=== PATIENT | male | born 1990 | race Caucasian/White ===

== ENCOUNTER → 2021-02-22 | Outpatient (CLI) | payer SELFPAY ==
[~2021-02-22] MED LIST: DEXT15TA PO; DOCU-109 PO; HYDR-2759 PO; METH-562 PO
[2021-02-22 14:26] LABS: BASO % 1 % (0-3); EOS # 0.1 x10^3/uL (0.0-0.7); EOS % 2 % (0-3); HEMATOCRIT 45.2 % (39.0-53.0); HEMOGLOBIN 16.2 g/dL (13.0-17.5); LYMPH # 2.1 x10^3/uL (1.0-4.8); LYMPH % 41 % (24-48); MEAN CORPUSCULAR HEMOGLOBIN 32 pg (25-35); MEAN CORPUSCULAR HGB CONC 36 g/dL (31-37); MEAN CORPUSCULAR VOLUME 90 fL (79-100); MONO # 0.6 x10^3/uL (0.0-1.1); MONO % 12 % (0-9); NEUT # 2.2 x10^3/uL (1.8-7.7); NEUT % 44 % (31-73); PLATELET COUNT 220 x10^3/uL (140-400); RED BLOOD COUNT 5.01 x10^6/uL (4.30-5.70); RED CELL DISTRIBUTION WIDTH 13.2 % (11.5-14.5)
[2021-02-22 14:53] LABS: ALBUMIN 4.2 g/dL (3.4-5.0); ALBUMIN/GLOBULIN RATIO 1.2 (1.0-1.7); CREATININE 1.2 mg/dL (0.7-1.3); GFR 72.1; POTASSIUM 4.3 mmol/L (3.5-5.1); TOTAL BILIRUBIN 0.5 mg/dL (0.2-1.0); TOTAL PROTEIN 7.6 g/dL (6.4-8.2)
== END ==
LOC: EDUNIT# 13:00 → SURGPAT 13:11
PROVIDERS: ATTEND Neurological Surgery
DX: Z01.818 Encounter for other preprocedural examination (principal); M51.17 Intervertebral disc disorders with radiculopathy, lumbosacral region; Z20.822 Contact with and (suspected) exposure to COVID-19
CPT/HCPCS: 80053; 85025; 87641; U0003; U0005

== ENCOUNTER 2021-02-24 10:05 | Day surgery (SDC) | payer SELFPAY ==
[2021-02-22 13:57] VITALS: BP 115/81
--- NOTE | 2021-02-22 20:54 | PREOP HP ---
DATE OF SERVICE: 02/24/2021 HISTORY OF PRESENT ILLNESS: The patient is a pleasant 30-year-old who is having difficulty with low back pain and right leg pain. The problem has been present for many years. He says he felt as though he has injured his back lifting weights He notes pain in the lower back, which radiates to the right lateral and posterior thigh and leg. He says he notices that when he becomes active, the leg feels tight. He says there is usually a discomfort, but it can be severe with activities. Activities tends to make his pain worse in his back and leg. Sitting and lying down and an activity helps. He received chiropractic treatment, physical therapy, as well as lumbar epidural steroid injections. His job requires primarily office type work. CURRENT MEDICATIONS: Adderall. PAST MEDICAL HISTORY: Denies any previous medical problems. PAST SURGICAL HISTORY: Bonita teeth and gynecomastia surgery in 2012. FAMILY HISTORY: Cancer. SOCIAL HISTORY: Employed, single. Nonsmoker. Drinks alcohol 1-2 times per month. ALLERGIES: No known drug allergies. REVIEW OF SYSTEMS: A 12-point review of systems was performed and is noncontributory except that mentioned above. PHYSICAL EXAMINATION: GENERAL: Alert, pleasant, in no acute distress. HEAD: Normocephalic, atraumatic. SKIN: Warm and dry. MUSCULOSKELETAL: Lumbar paraspinal muscle bulk is normal, restricted range of motion of the lumbar spine, [id number] tenderness of the lower lumbar spine with palpation, normal range of motion of the lower extremities bilaterally. EXTREMITIES: No clubbing, cyanosis or edema. NEUROLOGIC: Alert and oriented x3. Normal recent and remote memory, strength is 5/5 in the lower extremities, sensory was intact to light touch in the lower extremities, reflexes were present and symmetric in lower extremities bilaterally except for an absent right ankle jerk, positive straight leg raising on the right, negative straight leg raising on the left. Normal gait. IMAGING: I reviewed a lumbar MRI scan from 09/06/2020. On that study, the principal abnormality is at L5-S1 where there is a right focal disk protrusion. It has decreased in size from a study done a year earlier; however, there is extension of the disk into the foramen causing moderate right foraminal stenosis. There were also problems with disk bulging, which is broadbased at L4-L5 as well as L3-L4. ASSESSMENT AND PLAN: The patient has a focal disk herniation on the right side at L5-S1, which has failed to improve with considerable amount of conservative measures including epidural steroid injections and physical therapy. The problem interferes with all of his activities. My recommendation is that he consider lumbar microsurgery/microdiskectomy to remove this. I did speak with him about the surgery as well as the risks involved. I spoke about the technique of the operation and the expected postoperative course. He understands and would like to go ahead. GREER DR: Shakila TID: [id number] MTDTemo
[~2021-02-24] VITALS: Ht 182.9 cm; Wt 108.0 kg
[~2021-02-24 10:05] MED LIST changes: +BUPIVACAINE-EPI 0.5%-1:200000 MPF 30 ML VIAL. ONE; -DOCU-109 PO; +GELATIN SPONGE SIZE 100. ONE; -HYDR-2759 PO; +HYDROmorphone 2 MG/ML VIAL IVP PRN; +IV RINGERS,LACTATED 1000ML 1,000 ML IV SCH; +KETOROLAC 60 MG/2 ML VIAL. ONE; -METH-562 PO; +MORPHINE SULFATE 2 MG/ML VIAL. IVP PRN; +PROCHLORPERAZINE 10 MG/2 ML VIAL. IVP PRN; +THROMBIN TOPICAL 20,000 UNIT SPRAY.SYRN KIT TP ONE; +fentaNYL PF VIAL 100 MCG/2 ML VIAL IVP PRN
[2021-02-24] MEDS ORDERED: MIDAZOLAM HCL/PF 2 MG/2 ML VIAL. ONE (10:35)
[2021-02-24] MEDS ORDERED: REMIFENTANIL 1 MG VIAL. IV ONE ×2 (10:35→12:34)
[2021-02-24] MEDS ORDERED: ROCURONIUM 50 MG/5 ML VIAL. ONE (10:35)
[2021-02-24] MEDS ORDERED: LIDOCAINE 2% PF 5 ML VIAL. ONE (10:35)
[2021-02-24] MEDS ORDERED: 0.9 % SODIUM CHLORIDE 20 ML VIAL. IJ ONE (10:35)
[2021-02-24] MEDS ORDERED: PROPOFOL 10 MG/ML (20ML) VIAL. IV ONE (10:35)
[2021-02-24] MEDS ORDERED: fentaNYL PF VIAL 250 MCG/5 ML VIAL ONE (10:36)
[2021-02-24] MEDS ORDERED: PROPOFOL 50 ML IV ONE ×2 (10:40→12:25)
[2021-02-24] MEDS ORDERED: ONDANSETRON PF 4 MG/2 ML VIAL. ONE (12:06)
[2021-02-24] MEDS ORDERED: DEXAMETHASONE SOD PHOS 4 MG/ML VIAL ONE (12:06)
[2021-02-24] MEDS ORDERED: SEVOFLURANE > 120 MINUTES. IH ONE (12:06)
[2021-02-24] MEDS ORDERED: NEOSTIGMINE METHYLSULFATE 5 MG/5 ML SYRINGE. ONE (12:32)
[2021-02-24] MEDS ORDERED: GLYCOPYRROLATE 1 MG/5 ML VIAL. ONE (12:32)
[2021-02-24] MEDS ORDERED: HYDR-2759 PO (13:32)
[2021-02-24] MEDS ORDERED: DOCU-109 PO (13:32)
[2021-02-24] MEDS ORDERED: METH-562 PO (13:32)
--- NOTE | 2021-02-24 13:33 | DISCH ---
DISCHARGE INSTRUCTIONS Condition on Discharge Condition on Discharge: Stable Activity After Discharge Activity Instructions for Disc: Activity as tolerated, Avoid exertion Other activity instructions: no driving for a week Bathing Instructions: Shower-keep dressing dry Lifting Instructions after Dis: No heavy lifting, No pulling or pushing, Do not lift >10 pounds Diet after Discharge Additional Diet Restrictions: resume home diet Wound Incision Care Wound/Incision Care: Ice to area for comfort Other wound/incision instructi: may remove dressing in 48 hours if dry, no soaking Contacting the [facility] after DC Call your doctor for: Concerns you may have Follow-Up Follow up with: Dr. Carlton's nurse in 2 weeks [phone] EMILY CARLTON MD Feb 24, 2021 13:33
[2021-02-24] MEDS ORDERED: PROCHLORPERAZINE 10 MG/2 ML VIAL. ONE (14:43)
[2021-02-24] MEDS ORDERED: fentaNYL PF VIAL 100 MCG/2 ML VIAL ONE (14:43)
[2021-02-24] MEDS: fentaNYL PF VIAL 100 MCG/2 ML VIAL IVP PRN ×2 (14:46→14:57)
[2021-02-24] MEDS ORDERED: HYDROcodone/APAP 5/325MG 1 TAB TABLET PO ONE ×2 (15:00)
[2021-02-24 15:22] VITALS: BP 156/44
--- NOTE | 2021-02-24 16:56 | OP ---
DATE OF SURGERY: 02/24/2021 PREOPERATIVE DIAGNOSIS: Herniated lumbar disc, L5-S1, right with right lumbar radiculopathy. POSTOPERATIVE DIAGNOSIS: Herniated lumbar disc, L5-S1, right with right lumbar radiculopathy. OPERATIONS PERFORMED: Hemilaminotomy and microdiscectomy L5-S1, right. The operation was done with fluoroscopy, microscopic dissection. SPECIMEN:disc and decompression. SURGEON: Martin Santiago M.D. COLD WORKING SUPERVISOR: NAS Rojas, assisted with the surgery. She assisted with the exposure as well as the discectomy and microdecompression of the nerve root. OPERATIVE INDICATIONS: The patient is a pleasant 30-year-old male who had a long history of problems with L5-S1 disc on the right and lumbar radiculopathy. He has received a tremendous amount of conservative measures, the problem persisted and he presented to me wishing to have surgery. I did discuss with him the risks, the technique of the operation and the fact that this may or may not improve over the long-term based on the length of time he has had difficulties with nerve root irritation. He understood the surgery as well as the risks. DESCRIPTION OF PROCEDURE: Following general endotracheal anesthesia, the patient was positioned prone on the Dixon table. Lumbar region was prepped and draped in standard fashion. ALLI hose and AV impulse boots were applied for DVT prophylaxis. The microscope was draped, fluoroscopy was draped and brought to field and monitoring was established. Ancef 2 grams given less than 1 hour prior to initiation of the surgery. Using fluoroscopic guidance, I made a small midline incision over the L5-S1 interspace. I dissected down through skin and subcutaneous tissue and reflected the paraspinal muscles and placed a Milan microdisk retractor. I noted immediately that the spinous process overlying S1 was fractured. I did clear off and exposed the lamina and I brought in the high speed air drill through the microscope during this time using microscopic technique. Through the microscope, I burred down a generous hemilaminotomy and then I grasped ligamentum flavum and peeled it down and trimmed from medial to lateral. I performed a generous partial foraminotomy. The S1 nerve root was basically covered in scar and I cleared this away. There were a significant number of epidural veins, which I gently coagulated and also cleared off of the root. I gently retracted the root medially. There was a large calcified bulging disc. I did enter the disc space and removed disc and worked to fully decompress the region. I decompressed dorsally, medially, laterally, fully decompressed the entire region. I carried my bone work significantly below the disc space to be sure that the root was completely free. At this point, I could visualize the root easily. It was freely mobile, whereas previously it was tightly tethered and caught. I had performed a discectomy and fully decompressed the entire region. Hemostasis was excellent. I irrigated and I obtained hemostasis in the muscle after removing the retractor. I closed the wound in layers with absorbable suture and the skin was closed with a 4-0 subcuticular stitch. I felt the surgery went very well. ROXANN/KEVIN/[facility] [place] DR: Aida TID: [id number] LORI
--- NOTE | 2021-03-01 19:07 | PATHOLOGY ---
[facility] Accession Number: [id number] . 01 Material submitted: . vertebral column - LUMBAR DISC AND DECOMPRESSION. Modifiers: LUMBAR DISC . 01 Clinical history: . LUMBAR HERNIATED DISC WITH RADICULOPATHY LUMBAR MICRODISCECTOMY L5-S1 LUMBAR HERNIATED DISC WIT... . 02 Diagnosis: Segments of fibrocartilaginous, adipose, and skeletal muscle tissue and bone, lumbar disc and decompression: - Degenerative changes of fibrocartilaginous tissue. . ([facility]:mm; 03/01/2021) [facility] 03/01/2021 1525 Local . 02 Comment: There is no evidence of an acute inflammatory process or malignancy. . ([facility]:mm; 03/01/2021) . 02 Electronically signed: . Darinel Jenkins MD, Pathologist NPI- [id number] . 01 Gross description: . The specimen is received in formalin, labeled "Gesara Judd, lumbar disc and decompression" is a 2.5 x 1.5 x 0.4 cm aggregate of ramos-hammond dense fibroconnective tissue and scant bone decalcified and entirely submitted in A1.([facility]; 02/27/2021) [facility] 03/01/2021 1523 Local . 02 Pathologist provided ICD-10: M51.36 . 02 CPT . 592626, [id number] Specimen Comment: A courtesy copy of this report has been sent to [phone] Specimen Comment: Report sent to Performed at: 01 [facility] [address], [place], [place] [id number] MD Ivan Gustafson MD Phone: [phone] Performed at: 02 [facility] [address] [place], [place] [id number] MD Darinel Jenkins MD Phone: [phone]
== END 2021-02-24 16:10 | disposition home or self-care (01) ==
LOC: SURG 10:05
PROVIDERS: ATTEND Neurological Surgery
DX: M51.17 Intervertebral disc disorders with radiculopathy, lumbosacral region (principal); G47.30 Sleep apnea, unspecified; Z79.899 Other long term (current) drug therapy; Z98.890 Other specified postprocedural states; Z87.891 Personal history of nicotine dependence; Z72.89 Other problems related to lifestyle
CPT/HCPCS: 63030; 88304; 88311; 97161; A4213; A4364; A4556; A4930; A6254; A6258; J0690; J0780; J1100; J1885; J2250; J2405; J2704; J2710; J3010; J3490; 76000; A4222